=== PATIENT | female | born 1945 | race Caucasian/White ===

== ENCOUNTER 2023-03-24 10:08 | Emergency (ER) | payer MEDICARE, OTHER, SELFPAY ==
[2023-03-24 10:10] VITALS: BP 167/103; PULSE 71; TEMP 36.5; O2SAT 97; BMI 23.8
--- NOTE | 2023-03-24 10:25 | CT_ITS ---
WS: [id number] CT HEAD TECHNIQUE: Noncontrast CT of the head obtained from the skullbase to the vertex. CLINICAL INFORMATION: vertigo, headache COMPARISON: None. DLP: 986.[address] scans at [facility] use at least one of these dose optimization techniques: automated e xposure control; mA and/or kV adjustment per patient size (includes targeted exams where dose is matc hed to clinical indication); or iterative reconstruction. FINDINGS: No evidence of intracranial hemorrhage or mass effect. Ventricular system and basal cisterns are ng nt. Mild small vessel changes with mild parenchymal volume loss. Intracranial vascular calcification. No extra-axial fluid collections. No evidence of mass or mass effect. Paranasal sinuses and mastoid air cells are well aerated. .Normal visualized soft tissues. IMPRESSION: 1. No evidence of intracranial hemorrhage or mass effect. 2. Mild small vessel changes. Mild parenchymal volume loss. 3. Intracranial vascular calcification. 4. No acute intracranial findings.
--- NOTE | 2023-03-24 10:32 | W.ED.GENADLT ---
HPI - General Adult General: Chief complaint: General Medical Stated complaint: Hypertension Time Seen by Provider: 03/24/23 10:10 Source: patient Mode of arrival: ambulatory History of Present Illness: 77-year-old female presents emergency room via EMS from local clinic. She had an issue with her blood pressure being up and down she had pressure today up to over 200 systolic measured at the clinic. She had pressure in her head and dizziness symptoms. She does have some chronic vertigo. 2 days ago she had an episode of severe headache and some nausea even she did not check her blood pressure at that time she denies any chest or abdominal pain. Onset (ago): minute(s) Location: head Severity: mild Relieving factors: none Exacerbating factors: none Associated symptoms: Deny chest pain, confusion, cough, diaphoresis, decreased appetite, dyspnea, fevers/chills, headache(s), malaise, nausea, rash, palpitations, seizures, short of breath, syncope, vomiting or weakness Review of Systems Const: Denies: fever(s), chills, malaise or diaphoresis Card: Denies: chest pain, palpitations or syncope Resp: Denies: dyspnea GI: Denies: abdominal pain, nausea or vomiting : Denies: dysuria, urinary frequency or urinary urgency Musc: Denies: neck pain or back pain Skin/Breast: Denies: rash Neuro: Denies: headache(s) or confusion Physical Exam Const: COMMON NORMALS: no acute distress GENERAL APPEARANCE: cooperative and comfortable ORIENTATION/CONSCIOUSNESS: Yes awake, Yes oriented to person, Yes oriented to place and Yes oriented to time HENMT: COMMON NORMALS: normocephalic, atraumatic and hearing grossly normal bilaterally HEAD & SCALP: normocephalic and atraumatic Resp: COMMON NORMALS: normal respiratory effort, No retractions, No use of accessory muscles and clear to auscultation bilaterally AUSCULTATION: clear to auscultation bilaterally Cardio: COMMON NORMALS: regular rate, regular rhythm and No murmurs present (Cardio) RATE: regular rate RHYTHM: regular rhythm GI: COMMON NORMALS: Soft to palpation and No hepatosplenomegaly present AUSCULTATION: Yes normoactive bowel sounds PALPATION: Yes Soft to palpation, No Tenderness to palpation present (GI), No Guarding due to palpation present (GI) and Yes No hepatosplenomegaly present Extremity: COMMON NORMALS: normal to inspection, capillary refill normal, no clubbing, cyanosis or edema, no calf tenderness and no pedal edema Neuro: SENSORIUM/ORIENTATION: Yes oriented to person, Yes oriented to place and Yes oriented to time Skin: COMMON NORMALS: no rashes or lesions noted GENERAL SKIN EXAM: no rashes or lesions noted Course Vital Signs: Vital signs: Vital Signs Temperature 97.7 F 03/24/23 10:10 Pulse Rate 71 03/24/23 10:10 Respiratory Rate 18 03/24/23 11:12 Blood Pressure 121/78 03/24/23 11:12 Pulse Oximetry 97 03/24/23 10:10 Oxygen Delivery Me thod Room Air 03/24/23 10:10 MDM - General Adult Medical Decision Making Labs and imaging reviewed. EKG does not show any acute ST changes patient has not had any chest pain at all. On exam there is no sign of CVA none on the CT of the head. Blood pressure is well-controlled at this time. Will discharge the patient home she lives quite some distance from here encouraged her to follow-up with her primary care doctor she may benefit from further evaluation including possible echocardiogram and even more advanced imaging of the head if symptoms persist. Monitor blood pressure daily and follow-up with primary care to review. Continue current medications as prescribed at this time. Lab Data I reviewed the patient's lab results. 03/24/23 10:33 03/24/23 10:33 Laboratory Results WBC 5.77 10^3/uL (3.29-11.43) 03/24/23 10:33 RBC 4.51 10^6/uL (3.85-5.65) 03/24/23 10:33 Hgb 14.60 g/dL (11.27-16.99) 03/24/23 10:33 Hct 44.7 % (36-47) 03/24/23 10:33 MCV 99.1 fl (85-98) H 03/24/23 10:33 MCH 32.4 pg (27-33) 03/24/23 10:33 MCHC 32.7 g/dL (30-55) 03/24/23 10:33 RDW 11.9 % (12.1-15.1) L 03/24/23 10:33 Plt Count 194 10^3/cmm (157-399) 03/24/23 10:33 MPV 10.4 fL (7.4-10.4) 03/24/23 10:33 Neut % (Auto) 62.2 % 03/24/23 10:33 Lymph % (Auto) 29.8 % 03/24/23 10:33 [place] % (Auto) 6.2 % 03/24/23 10:33 Eos % (Auto) 0.9 % 03/24/23 10:33 Baso % (Auto) 0.7 % 03/24/23 10:33 Neut # (Auto) 3.59 10^3/uL (1.8-7.7) 03/24/23 10:33 Lymph # (Auto) 1.7 10^3/uL (0.8-4.8) 03/24/23 10:33 [place] # (Auto) 0.4 10^3/uL (0.2-0.9) 03/24/23 10:33 Eos # (Auto) 0.1 10^3/uL (0.0-0.8) 03/24/23 10:33 Baso # (Auto) 0.0 10^3/uL (0.0-0.1) 03/24/23 10:33 Nucleated RBC % (auto) 0 % 03/24/23 10:33 Nucleated RBCs # 0.0 /100WBC 03/24/23 10:33 Sodium 141 mmol/L (136-145) 03/24/23 10:33 Potassium 4.3 mmol/L (3.5-5.1) 03/24/23 10:33 Chloride 105 mmol/L (98-107) 03/24/23 10:33 Carbon Dioxide 29 mmol/L (22-29) 03/24/23 10:33 Anion Gap 11.3 (5-19) 03/24/23 10:33 BUN 14 mg/dL (8-23) 03/24/23 10:33 Creatinine 0.8 mg/dL (0.5-0.9) 03/24/23 10:33 GFR Calculation Not Reportable 03/24/23 10:33 Glucose 103 mg/dL (65-115) 03/24/23 10:33 Calculated Osmolality 293 mOsm/kg (285-295) 03/24/23 10:33 Calcium 9.4 mg/dL (8.5-10.5) 03/24/23 10:33 Total Bilirubin 0.4 mg/dL (0.15-1.2) 03/24/23 10:33 AST 22 U/L (0-32) 03/24/23 10:33 ALT 23 U/L (0-33) 03/24/23 10:33 Alkaline Phosphatase 76 U/L (35-105) 03/24/23 10:33 Total Protein 7.1 g/dL (6.6-8.7) 03/24/23 10:33 Albumin 4.3 g/dL (3.5-5.2) 03/24/23 10:33 Globulin 2.8 g/dL (1.3-4.6) 03/24/23 10:33 All radiology interpretation(s) finalized by discharge Discharge Plan Discharge Patient Disposition: Home Clinical Impression: Hypertension, Vertigo Condition: Stable Prescriptions: No Action Aspir-81 81 mg Tablet,Delayed Release (Dr/Ec) 81 mg PO DAILY magnesium oxide 400 mg (241.3 mg magnesium) tablet 400 mg PO BID vitamin B complex Tablet 1 tab PO DAILY zinc gluconate 50 mg Tablet 50 mg PO DAILY polyethylene glycol 3350 17 gram/dose powder See Rx Instructions .ROUTE .COMPLEX Rx Instructions: MIX 1 CAPFUL WITH 8 OZ. OF LIQUID AND DRINK BY MOUTH TWICE DAILY Vitamin D3 50 mcg (2,000 unit) Tablet 50 mcg PO DAILY One A Day Tablet 1 tab PO DAILY Discharge Orders: Discharge ED (Routine); Ordered 03/24/23 Ordered By: Deshawn Kerr Discharge Diet: Usual diet Discharge Activity: Increase activity as tolerated Patient Instructions: Opioid Safety, Pain Management Activity Restrictions/Additional Instructions: Thank you for choosing [facility] for your healthcare needs today. Please realize this is an emergency room and that we are providing you with a medical screening exam and this may not be complete and all inclusive of all the testing and or work up that you may need to determine your ailment or severity of your illness. It is very important that you follow up as instructed or that you return to the Emergency Department should you have concerns or if your condition changes or worsens in any way. You are seen today for complaints of elevated blood pressure and dizziness. Your exam was normal did not show signs of stroke head CT did not show any acute changes. EKG was normal. Recommend you follow-up with your doctor for further evaluation within the next week and monitoring of your blood pressure. Coding Level of Care Code ED Internal Affairs Commander for Amrik Gutierres
[2023-03-24 10:46] LABS: Basophils % 0.7 %; Eosinophils # 0.1 10^3/uL (0.0-0.8); Eosinophils % 0.9 %; Hematocrit 44.7 % (36-47); Lymphocytes # 1.7 10^3/uL (0.8-4.8); Lymphocytes % 29.8 %; Mean Corpuscular HGB Conc 32.7 g/dL (30-55); Mean Corpuscular Hemoglobin 32.4 pg (27-33); Mean Corpuscular Volume 99.1 fl (85-98); Mean Platelet Volume 10.4 fL (7.4-10.4); Monocytes # 0.4 10^3/uL (0.2-0.9); Monocytes % 6.2 %; Neutrophils # 3.59 10^3/uL (1.8-7.7); Neutrophils % 62.2 %; Nucleated Red Blood Cells % 0 %; Platelet Count 194 10^3/cmm (157-399); Red Blood Count 4.51 10^6/uL (3.85-5.65); Red Cell Distribution Width 11.9 % (12.1-15.1); White Blood Count 5.77 10^3/uL (3.29-11.43)
[2023-03-24 11:07] LABS: Alanine Aminotransferase 23 U/L (0-33); Albumin Level 4.3 g/dL (3.5-5.2); Alkaline Phosphatase 76 U/L (35-105); Anion Gap 11.3 (5-19); Aspartate Amino Transferase 22 U/L (0-32); Blood Urea Nitrogen 14 mg/dL (8-23); Calcium 9.4 mg/dL (8.5-10.5); Carbon Dioxide 29 mmol/L (22-29); Chloride 105 mmol/L (98-107); Globulin 2.8 g/dL (1.3-4.6); Glucose 103 mg/dL (65-115); Osmolality Calculated 293 mOsm/kg (285-295); Potassium 4.3 mmol/L (3.5-5.1); Sodium 141 mmol/L (136-145); Total Bilirubin 0.4 mg/dL (0.15-1.2); Total Protein 7.1 g/dL (6.6-8.7)
[2023-03-24 11:12] VITALS: BP 121/78; RESP 18
--- NOTE | 2023-03-24 11:14 | ECG_ITS ---
[facility] Test Date: 2023-03-24 Pat Name: Millicent Tran Department: Room: Gender: Female Drag Down: : 1945 Requested By: Deshawn Dalton Order Number: [id number] Caroline MD: Derick Joyner M.D. Measurements Intervals [place] Rate: 65 P: 0 IA: 0 QRS: 84 QRSD: 100 T: 80 QT: 399 QTc: 416 Interpretive Statements SUPRAVENTRICULAR RHYTHM INCOMPLETE RIGHT BUNDLE BRANCH BLOCK [90+ ms QRS DURATION, TERMINAL R IN V1/V2, 40+ ms S IN I/aVL/V4/V5/V6] ABNORMAL RHYTHM ECG No previous ECG available for comparison Electronically Signed On 03-24-2023 14:40:30 HEADLIGHT ADJUSTER by Derick Joyner M.D. [id number]
--- NOTE | 2023-03-24 11:15 | PC.PHAR ---
PT STATES TAKES NO MAINTENANCE MEDICATIONS, JUST OVER THE COUNTER VITAMINS AND SUPPLEMENTS ALONG WITH MIRALAX AND ASPIRIN 81 MG. 03/24/23
[2023-03-24] MEDS: acetaminophen 500 mg Tablet 1000 MG PO (12:24)
== END 2023-03-24 12:25 | disposition home or self-care (01) ==
PROVIDERS: Emergency Provider Family Medicine
DX: I10 Essential (primary) hypertension (principal); R42 Dizziness and giddiness; Z79.82 Long term (current) use of aspirin
CPT/HCPCS: 36415; 70450; 80053; 85025; 93005; 99284